=== PATIENT | male | born 1990 | race Caucasian/White ===

== ENCOUNTER 2017-12-22 06:46 | Emergency (ER) | payer MEDICAID ==
[2017-12-22 06:56] VITALS: BP 132/73
[2017-12-22] MEDS ORDERED: IBUPROFEN 600 MG TAB PO ONE (07:18)
--- NOTE | 2017-12-22 07:27 | EDPHY ---
H & P Time Seen by Provider: 12/22/17 06:59 HPI/ROS: This patient was playing softball wearing only socks yesterday and while running he hyper extended the left great toe with immediate pain that is mild baseline but severe with extension or flexion of the great toe since then. The location of the pain is at the 1st metatarsophalangeal joint. He reports associated ecchymosis and swelling as well as tenderness. He has not taken any analgesics for his pain today. His drove him here by private vehicle for further evaluation of his symptoms. ROS: Neuro: No numbness or tingling the affected extremity Musculoskeletal: No other injuries. He did not hear a pop when the injury occurred. Integumentary: No lacerations or abrasions 5 point ROS is otherwise negative. Past Medical/Surgical History: Otherwise healthy Smoking Status: Former smoker Physical Exam: Physical Exam Vital signs are normal. General: No acute distress Lungs: No respiratory distress. Cardiac: Brisk capillary refill is intact throughout. Pulses are 2+ and symmetric in the affected extremity. Skin: No rash or pallor. Extremities: Atraumatic normal except for left foot Left foot: Patient has left ft swelling at the 1st metatarsophalangeal joint with associated ecchymosis and tenderness. He has limited range of motion at that joint due to increasing pain with movement. There is no other foot swelling or tenderness no ankle swelling or tenderness. Neuro: Alert and oriented x3 with no sensorimotor deficits. Initial differential diagnosis: Ft sprain, fracture, traumatic hematoma Constitutional: Initial Vital Signs Temperature (C) 36.9 C 12/22/17 06:54 Heart Rate 98 12/22/17 06:54 Respiratory Rate 18 12/22/17 06:54 Blood Pressure 132/73 H 12/22/17 06:54 O2 Sat (%) 96 12/22/17 06:54 O2 Delivery Mode Room Air Allergies/Adverse Reactions: amoxicillin Allergy (Verified 12/22/17 06:54) Home Medications: Medication Instructions Recorded NK [No Known Home Meds] 12/22/17 MDM/Departure - MDM Diagnostics: Three-view foot x-ray: Negative for fracture by my interpretation Imaging: I viewed and interpreted images myself ED Course/Re-evaluation: Ibuprofen p. O. Splinting: Patient placed in a postop shoe by our tech I counseled the patient regarding foot sprain. - Depart Disposition: Home, Routine, Self-Care Clinical Impression: Sprain of toe, great, left Qualifiers: Encounter type: initial encounter Qualified Code(s): S93.502A - Unspecified sprain of left great toe, initial encounter Condition: Good Instructions: Foot Sprain (ED) Additional Instructions: Diagnosis: Great toe sprain Plan: Ice 20 min at a time 3 times a day for the next few days Ibuprofen and Tylenol for pain as needed Postop shoe when your up and about until symptoms improve-likely over the next 7 -14 days Follow up with Dr. Guevara -coding director if you are not improving over that period of time. Return for any significant worsening despite treatment plan. Referrals: Neymar Guevara MD [Doctor of Podiatric Medicine] - As per Instructions
== END 2017-12-22 07:35 | disposition home or self-care (01) ==
LOC: CED 06:46
DX: S93.502A Unspecified sprain of left great toe, initial encounter (principal); Z87.891 Personal history of nicotine dependence; X50.9XXA Other and unspecified overexertion or strenuous movements or postures, initial encounter; Y99.8 Other external cause status; Y93.64 Activity, baseball
CPT/HCPCS: 73630-PO; L4386

== ENCOUNTER 2018-02-06 18:04 | Emergency (ER) | payer OTHER, MEDICAID ==
[2018-02-06] MEDS ORDERED: KETOROLAC 30 MG/1 ML SDV IM ONE (18:24)
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
[2018-02-06 19:02] VITALS: BP 110/77
== END 2018-02-06 19:02 | disposition home or self-care (01) ==
LOC: CED 18:04
DX: M54.6 Pain in thoracic spine (principal); Z87.891 Personal history of nicotine dependence
CPT/HCPCS: 72070-PO; J1885